=== PATIENT | female | born 1935 | race Caucasian/White ===

== ENCOUNTER 2023-10-01 08:59 | Emergency (ER) | payer MEDICARE, BC, OTHER, SELFPAY ==
[2023-10-01] VITALS (8 sets, daily range): BP systolic 135–151; BP diastolic 60–68; PULSE 64–73; RESP 11–20; TEMP 36.8; O2SAT 96–99
--- NOTE | ~2023-10-01 | XR_ITS ---
Portable chest x-ray Comparison: None Clinical History: Weakness Findings: Calcified right midlung pulmonary. Lungs are otherwise clear. Cardiomediastinal silhouett e is minimally prominent, status post aortic valve replacement. Bones and soft tissues are unremarkab le. Impression: Status post aortic valve replacement. No significant pulmonary abnormality. Reviewed, dictated and finalized at [facility]. [employer]OR OF APPLICATION DEVELOPMENT Impression: Status post aortic valve replacement. No significant pulmonary abnormality.
--- NOTE | 2023-10-01 09:16 | ECG_ITS ---
Measurements Intervals [place] Rate: 66 P: 66 TN: 157 QRS: 45 QRSD: 97 T: 65 QT: 406 QTc: 425 Interpretive Statements SINUS RHYTHM MINIMAL Q WAVES- INFERIOR LEADS BORDERLINE ST-T WAVE ABNORMALITY- ANT/HIGH LAT LEADS BORDERLINE ECG NO PREVIOUS ECG AVAILABLE FOR COMPARISON Electronically Signed On 10-01-2023 9:42:54 GARBAGE COLLECTOR SUPERVISOR by Rudy Albert D.O.
--- NOTE | 2023-10-01 09:17 | ED.GENADULT ---
HPI - General Adult General Chief complaint: Unspecified Stated complaint: can't stop shaking, head hurts Time Seen by Provider: 10/01/23 09:09 History of Present Illness HPI narrative: Pt says she awoke this morning and started shaking. Pt says she thought it might be her blood sugar so she ate something but the shaking persisted. Pt denies chest pain or SOB. Pt has not been febrile or had a cough or urinary symptoms. Pt says had somethig similar in past and thought she was hyperventilating and slowed her breathing and it resolved but not a recurring issue. Related Data Home Medications Medication Instructions Recorded Confirmed amlodipine 10 mg tablet 10 mg PO DAILY 12/07/19 09/17/23 cholecalciferol (vitamin D3) 50 2,000 unit PO DAILY 12/07/19 09/17/23 mcg (2,000 unit) tablet metoprolol succinate 25 mg 25 mg PO DAILY 12/07/19 09/17/23 tablet,extended release 24 hr aspirin 81 mg tablet,delayed 81 mg PO DAILY 11/24/20 09/17/23 release (Adult Low Dose Aspirin) omeprazole 20 mg capsule,delayed mg 10/01/23 10/01/23 release Allergies Allergy/AdvReac Type Severity Reaction Status Date / Time No Known Drug Allergies Allergy Unknown Unknown Verified 10/01/23 09:22 Review of Systems Review of Systems: All systems reviewed & are unremarkable except as noted in HPI and below PMFSH Past Medical History Medical History (Updated 10/01/23 @ 13:23 by Nicolas Fry III, ) Aortic stenosis BMI 36.0-36.9,adult Cholecystectomy planned CKD (chronic kidney disease) stage 3, GFR 30-59 ml/min Cochlear implant in place Diverticulitis Epigastric discomfort Epigastric pain Hyperglycemia Hyperlipidemia Hypertension Mass of ampulla of Vater Vitamin D deficiency Surgical History Surgical History H/O aortic valve replacement History of heart valve replacement Family History Family History (Updated 09/12/23 @ 11:29 by PERRY James) Father Hypertension Heart disease Mother Hypertension Angina pectoris Tobacco abuse Sibling Heart disease Diabetes mellitus Social History Social History (Updated 09/12/23 @ 11:30 by PERRY James) Smoking status: Never smoker Second hand tobacco smoke exposure: Yes Alcohol intake: never Substance use: never Substance use type: does not use Lack of Transportation: No Lack of Food: Never True Current Housing: I Have Housing Concerned About Future Housing: No Difficulty Paying Gas/Electric Bills: No Difficulty Paying for Meds: No Currently Unemployed: No Education: High School Diploma/GED Difficulty w/ Childcare or Family Care: No Living arrangements: alone Occupation/Education: retired 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 Gender identity (if verbalized by the patient): Female Sexual Orientation (if Verbalized by the Patient): Straight or Heterosexual Spiritual care concerns: No Exam Const: General: cooperative, healthy appearing and no acute distress Nutritional Appearance: well nourished Orientation/consciousness: patient oriented x3 Limitations: no limitations Eyes: General: appearance normal, both eyes and all related structures Neck: Neck: normal visual inspection, full ROM, no lymphadenopathy and no meningeal signs Thyroid: thyroid normal Chest: Chest palpation & inspection: normal inspection of the chest Resp: Effort & Inspection: normal respiratory effort and able to speak in complete sentences Auscultation: clear to auscultation bilaterally Cardio: Jugular venous distension: no JVD Rate: regular rate Rhythm: regular rhythm GI: Inspection: normal to inspection GI Palp: No abdominal tenderness Auscultation: normal bowel sounds Back/Spine/Pelvis: Back: no CVA tenderness Skin: General skin exam: normal color Neuro: General: patient oriented x3 Cranial nerves: Yes CN's
[2023-10-01 09:34] LABS: Basophils Absolute Auto 0.1 K/mm3 (0.0-0.1); Basophils Percent Auto 0.7 % (0.2-1.2); Eosinophils Absolute Auto 0.2 K/mm3 (0-0.3); Eosinophils Percent Auto 2.7 % (0-4.4); Hematocrit 37.4 % (37.0-47.0); Hemoglobin 12.3 g/dL (12.0-15.0); Immature Granulocyte Absolute 0.03 K/mm3 (0.00-0.031); Immature Granulocyte Percent A 0.3 % (0-0.5); Lymphocytes Absolute Auto 1.44 K/mm3 (0.9-3.2); Lymphocytes Percent Auto 15.9 % (18.3-44.2); Mean Corpuscular HGB Conc 32.9 g/dl (32-36); Mean Corpuscular Hemoglobin 29.3 pg (26-34); Mean Platelet Volume 11.3 fl (7.4-10.4); Monocytes Absolute Auto 0.5 K/mm3 (0.1-0.6); Monocytes Percent Auto 5.5 % (2.6-8.5); Neutrophils Absolute Auto 6.8 K/mm3 (1.3-6.7); Neutrophils Percent Auto 74.9 % (45.5-73.1); Platelet Count Result 171 k/mm3 (150-375); Red Cell Distribution Width 12.9 % (11.5-14.5)
[2023-10-01] MEDS: LORazepam INJ (*CRX) 2 MG/ML VIAL 0.5 MG IV PUSH (09:42)
[2023-10-01 09:45] LABS: Alanine Aminotransferase 15 U/L (6-35); Albumin Level 4.1 g/dL (3.5-5.1); Alkaline Phosphatase 57 U/L (38-126); Anion Gap 9 mmol/L (8-16); Aspartate Amino Transferase 21 U/L (14-36); Bilirubin,Total 0.5 mg/dL (0.2-1.3); Blood Urea Nitrogen 26 mg/dL (7-17); Calcium 9.2 mg/dL (8.4-10.2); Carbon Dioxide 26 mmol/L (22-30); Chloride 102 mmol/L (98-107); Estimated CRCL calculation 24 ml/min; Estimated Glomerular Filt Rate 30; Glucose 222 mg/dL (65-110); Potassium 3.5 mmol/L (3.4-5.0); Sodium 137 mmol/L (137-145)
[2023-10-01 09:54] LABS: Partial Thromboplastin Time 28.8 SECONDS (22.3-36.8)
[2023-10-01 09:59] LABS: Troponin I 0.036 ng/mL (0.000-0.034)
[2023-10-01 12:22] LABS: Troponin I 0.031 ng/mL (0.000-0.034)
== END 2023-10-01 13:38 | disposition home or self-care (01) ==
PROVIDERS: Emergency Provider Emergency Medicine; PCP Internal Medicine
DX: F41.9 Anxiety disorder, unspecified (principal); E78.5 Hyperlipidemia, unspecified; I12.9 Hypertensive chronic kidney disease with stage 1 through stage 4 chronic kidney disease, or unspecified chronic kidney disease; N18.30 Chronic kidney disease, stage 3 unspecified; Z79.899 Other long term (current) drug therapy
CPT/HCPCS: 36415; 71045; 80053; 84484; 85025; 85610; 85730; 93005; 96374; 99284; J2060

== ENCOUNTER 2023-11-07 10:59 | Emergency (ER) | payer MEDICARE, BC, OTHER, SELFPAY ==
--- NOTE | ~2023-11-07 | XR_ITS ---
EXAMINATION: XR chest 2V DATE: 11/07/2023 14:16 INDICATION: Dysphagia. TECHNIQUE: Frontal and lateral views of the chest were obtained. COMPARISON: Chest single view 10/01/2023, CT abdomen and pelvis 09/05/2015 FINDINGS: A calcified right lung nodule is consistent with old granulomatous disease. There is mild a telectasis in the lower lung zones. No pleural effusion or pneumothorax. The heart size is normal. Th ere are changes of aortic valve replacement. IMPRESSION: 1. Mild atelectasis in the lower lung zones. Reviewed, dictated and finalized at location A. OPERATOR
[2023-11-07 11:00] VITALS: BP 146/77; PULSE 67; RESP 18; TEMP 37.1; O2SAT 100
[2023-11-07 13:11] VITALS: BP 158/70; PULSE 67; RESP 16; O2SAT 97
[2023-11-07 13:22] VITALS: PULSE 68
[2023-11-07 13:23] LABS: Glucose Point of Care 103 mg/dl (65-105)
--- NOTE | 2023-11-07 13:25 | ED.GENADULT ---
HPI - General Adult General Chief complaint: Unspecified Stated complaint: trouble swallowing Time Seen by Provider: 11/07/23 13:15 History of Present Illness HPI narrative: Patient is an 88-year-old female with history of anxiety, GERD, hiatal hernia here with difficulty swallowing. Patient notes that when she woke up this morning she started to feel a bit anxious. She describes herself as shaking which seems similar to her prior panic attacks in the past. She checked her blood sugar at that time which was normal and then decided to eat something to make herself feel better. She notes that she tried to eat a breakfast sandwich at home and took small bites but kept regurgitating them. She then continued to feel more anxious worried about what this could mean and went to her living room and tried to take a dose of Ativan. She notes that she was unable to swallow this or her juice and through this back up as well. She notes that her anxiety seems to have significantly improved but is still concerned about not being able to swallow. Daughter did try to give her liquids when she arrived at the house and was unable to get her to take her Ativan by mouth which prompted them to come into the emergency department. She notes she felt normal when she went to bed last night, had no difficulty with swallowing dinner. She did note some epigastric discomfort when she was trying to eat, this is nearly resolved at this time. Family at bedside helps with history. They note that at the end of August she had an endoscopy due to concerns that she was not passing her food fully down into her stomach when she would eat. She described it as feeling like her food was stacking up at that time. An EGD was performed on September 23 and she was found to have an esophageal ring along with her hiatal hernia and gastritis. A dilation was performed at that time and her symptoms seemed to resolve. They did notice a very prominent ampulla at that time and she had a follow-up EGD performed at [facility] where biopsies revealed precancerous lesions in her ambulate. She was advised to continue following with Dr. Alaniz for further planning. Related Data Home Medications Medication Instructions Recorded Confirmed amlodipine 10 mg tablet 10 mg PO DAILY 12/07/19 09/17/23 cholecalciferol (vitamin D3) 50 2,000 unit PO DAILY 12/07/19 09/17/23 mcg (2,000 unit) tablet metoprolol succinate 25 mg 25 mg PO DAILY 12/07/19 09/17/23 tablet,extended release 24 hr aspirin 81 mg tablet,delayed 81 mg PO DAILY 11/24/20 09/17/23 release (Adult Low Dose Aspirin) omeprazole 20 mg capsule,delayed mg 10/01/23 10/01/23 release Allergies Allergy/AdvReac Type Severity Reaction Status Date / Time No Known Drug Allergies Allergy Unknown Unknown Verified 10/01/23 09:22 Review of Systems Review of Systems: All systems reviewed & are unremarkable except as noted in HPI and below [facility] Past Medical History Medical History (Updated 11/07/23 @ 17:16 by Ingris Mayes MD) Aortic stenosis BMI 36.0-36.9,adult Cholecystectomy planned CKD (chronic kidney disease) stage 3, GFR 30-59 ml/min Cochlear implant in place Diverticulitis Epigastric discomfort Epigastric pain Hyperglycemia Hyperlipidemia Hypertension Mass of ampulla of Vater Vitamin D deficiency Surgical History Surgical History H/O aortic valve replacement History of heart valve replacement Family History Family History (Updated 09/12/23 @ 11:29 by PERRY James) Father Hypertension Heart disease Mother Hypertension Angina pectoris Tobacco abuse Sibling Heart disease Diabetes mellitus Social History Social History (Updated 09/12/23 @ 11:30 by PERRY James) Smoking status: Never smoker Second hand tobacco smoke exposure: Yes Alcohol intake: never Substance use: never Substance use type: does
--- NOTE | 2023-11-07 13:40 | ECG_ITS ---
Measurements Intervals [place] Rate: 65 P: 81 [place]: 159 QRS: 39 QRSD: 94 T: 47 QT: 414 QTc: 432 Interpretive Statements SINUS RHYTHM NONSPECIFIC T-WAVE ABNORMALITY ABNORMAL ECG COMPARED TO ECG 10/01/2023 09:36:10 NO SIGNIFICANT CHANGES Electronically Signed On 11-07-2023 14:10:15 FRAME TRIMMER by Rajendra Szymanski M.D.
[2023-11-07 14:00] VITALS: BP 147/57; PULSE 69; RESP 19; O2SAT 96
[2023-11-07 14:10] LABS: Basophils Percent Auto 0.5 % (0.2-1.2); Eosinophils Absolute Auto 0.2 K/mm3 (0-0.3); Eosinophils Percent Auto 2.4 % (0-4.4); Hematocrit 38.1 % (37.0-47.0); Hemoglobin 12.2 g/dL (12.0-15.0); Immature Granulocyte Absolute 0.04 K/mm3 (0.00-0.031); Immature Granulocyte Percent A 0.5 % (0-0.5); Lymphocytes Absolute Auto 1.36 K/mm3 (0.9-3.2); Lymphocytes Percent Auto 16.3 % (18.3-44.2); Mean Corpuscular Volume 90.5 fl (80-100); Mean Platelet Volume 10.7 fl (7.4-10.4); Monocytes Absolute Auto 0.5 K/mm3 (0.1-0.6); Monocytes Percent Auto 6.3 % (2.6-8.5); Neutrophils Absolute Auto 6.2 K/mm3 (1.3-6.7); Platelet Count Result 147 k/mm3 (150-375); Red Blood Count 4.21 M/mm3 (4.2-5.4); Red Cell Distribution Width 12.9 % (11.5-14.5); White Blood Count 8.4 K/mm3 (4.5-10.0)
[2023-11-07 14:18] LABS: Alanine Aminotransferase 12 U/L (6-35); Alkaline Phosphatase 64 U/L (38-126); Anion Gap 6 mmol/L (8-16); Aspartate Amino Transferase 22 U/L (14-36); Bilirubin,Total 0.7 mg/dL (0.2-1.3); Blood Urea Nitrogen 24 mg/dL (7-17); Calcium 9.5 mg/dL (8.4-10.2); Carbon Dioxide 28 mmol/L (22-30); Chloride 104 mmol/L (98-107); Estimated CRCL calculation 27 ml/min; Estimated Glomerular Filt Rate 42; Glucose 111 mg/dL (65-110); Magnesium 1.7 mg/dL (1.6-2.3); Sodium 138 mmol/L (137-145)
[2023-11-07 14:30] LABS: Troponin I < 0.012 ng/mL (0.000-0.034)
[2023-11-07] MEDS: PANTOPRAZOLE SODIUM IV 40 MG VIAL IV PUSH (14:59)
[2023-11-07] MEDS: SODIUM CHLORIDE 0.9% IV 1,000 ML 999 ML IV CONT (14:59)
[2023-11-07 16:56] VITALS: BP 146/52; PULSE 69; RESP 16; O2SAT 99
[2023-11-07 19:20] VITALS: BP 159/63; PULSE 67; RESP 20; O2SAT 98
== END 2023-11-07 18:05 | disposition home or self-care (01) ==
PROVIDERS: Emergency Provider Student in an Organized Health Care Education/Training Program; PCP Internal Medicine
DX: R13.10 Dysphagia, unspecified (principal); I35.0 Nonrheumatic aortic (valve) stenosis; I12.9 Hypertensive chronic kidney disease with stage 1 through stage 4 chronic kidney disease, or unspecified chronic kidney disease; N18.30 Chronic kidney disease, stage 3 unspecified; E78.5 Hyperlipidemia, unspecified; E55.9 Vitamin D deficiency, unspecified; K21.9 Gastro-esophageal reflux disease without esophagitis; K44.9 Diaphragmatic hernia without obstruction or gangrene; Z95.2 Presence of prosthetic heart valve; Z77.22 Contact with and (suspected) exposure to environmental tobacco smoke (acute) (chronic); Z79.82 Long term (current) use of aspirin
CPT/HCPCS: 36415; 71046; 80053; 82948; 83735; 84484; 85025; 93005; 96361; 96374; 99284; C9113; J7030